=== PATIENT | male | born 1965 | race Caucasian/White ===

== ENCOUNTER 2018-04-03 15:30 | Emergency (ER) | payer OTHER ==
[~2018-04-03] VITALS: Ht 167.6 cm; Wt 78.9 kg
[~2018-04-03 15:30] MED LIST: PROZAC10 MG PO
[2018-04-03] MEDS ORDERED: LIPITOR20 MG (15:45)
== END 2018-04-03 17:24 | disposition home or self-care (01) ==
LOC: ER 15:30
DX: S80.02XA Contusion of left knee, initial encounter (principal); W18.39XA Other fall on same level, initial encounter; Y93.89 Activity, other specified; Y92.098 Other place in other non-institutional residence as the place of occurrence of the external cause; Y99.8 Other external cause status